=== PATIENT | female | born 1990 | race Caucasian/White ===

== ENCOUNTER 2024-02-05 10:00 | Outpatient (RCR) | payer BC, SELFPAY | END 2024-04-10 10:48 | disposition home or self-care (01) | PROVIDERS: PCP Family Medicine; Visit Provider Family Medicine | DX: M25.571 Pain in right ankle and joints of right foot (principal); M25.572 Pain in left ankle and joints of left foot; Z51.89 Encounter for other specified aftercare | CPT/HCPCS: 97110; 97161 ==

== ENCOUNTER 2024-06-13 13:23 | Outpatient (CLI) | payer BC, SELFPAY | END 2024-06-13 13:24 | disposition home or self-care (01) | LOC: NFLDREF 13:24 | PROVIDERS: PCP Family Medicine; Visit Provider Obstetrics & Gynecology | DX: N83.201 Unspecified ovarian cyst, right side (principal) | CPT/HCPCS: 86304 ==

== ENCOUNTER 2024-07-11 07:39 | Day surgery (SDC) | payer BC, SELFPAY ==
[2024-07-11] VITALS (12 sets, daily range): BP systolic 100–126; BP diastolic 55–96; PULSE 64–87; RESP 11–16; TEMP 36.3–36.9; O2SAT 93–98; BMI 37.3
[2024-07-11 08:30] LABS: Hemoglobin* 12.7 gm/dL (12.0-16.0)
[2024-07-11] MEDS: LACTATED RINGERS 1000 ML 1,000 ML 100 ML IV (08:30)
[2024-07-11] MEDS: SODIUM CHLORIDE 0.9 % (FLUSH) 10 ML SYRINGE IVF (08:30)
--- NOTE | 2024-07-11 08:31 | W.PM.H&PU ---
History & Physical Update History & Physical Update H&P Reviewed and patient assessed: No changes noted
--- NOTE | 2024-07-11 08:32 | PM.PROC ---
Procedure Note Time Seen by Provider: 11:31 Date Seen: 07/11/24 Date of procedure: 07/11/24 Will [facility] bill your pro fee for this procedure?: Yes Procedure: Referring physician: Theresa Muñoz MD Preoperative diagnosis: 34 yo with menorrhagia and right adnexal cyst. Postoperative diagnosis: Same with suspected endometrial polyps, paratubal cyst, stage I endometriosis Procedure: Hysteroscopy, dilation and curettage, endometrial ablation. Laparoscopic right paratubal cystectomy, fulguration of endometriosis. Anesthesia: General endotracheal and paracervical block. Surgeon: Meenu Carreon MD Assist: Kamryn Xie MD Estimated blood loss: 10 mL IV Fluid: 600 mL Urine output: 600 mL Specimen: Endometrial curettings, Ovarian cyst. sent to path. Findings: On exam under anesthesia: The cervix and vagina appear normal. The uterus was retroflexed position, approximately 8 week size, mobile and without masses or nodularity palpable. Adnexa were without mass or fullness palpable bilaterally. On hysteroscopy: Multiple polypoid masses otherwise endometrium normal. No other abnormalities noted. The uterus sounded to 10 cm. Cervical length 4.5 cm. Cavity length: 5.5. On Laparoscopy: Paratubal cyst measuring approximately 5-6 cm in diameter, stage I endometriosis with blebs in the posterior cul-de-sac along the uterosacral ligaments primarily on the right a few powder burn all like scars in the posterior cul-de-sac on the right that were not fulgurated due to proximity to the ureter. Normal uterus bilateral ovaries and left fallopian tube. Normal appendix, liver and gallbladder. Procedure: Mallory was taken to the operating room where general endotracheal anesthesia was found to be adequate. She was placed in a dorsal lithotomy position and an exam under anesthesia was performed with the findings stated above. She was then prepped and draped in a normal sterile manner. A Shepherd catheter was placed. An a bivalve is sterile speculum was placed in the vaginal canal. A paracervical block was placed using 0.5% Marcaine: 5 mL were injected at the 4 and 8 o'clock positions on the cervix. A long Allis clamp was placed on the anterior lip of the cervix. The cervix was then dilated to Hegar 6. Uterus sounded to 10 cm. The cervix measured 4.5 cm. There for the cavity length was 5.5 cm. The Truclear hysteroscope was advanced into the uterus. A diagnostic hysteroscopy performed with normal saline as the insufflation medium. Findings are stated above. The Truclear incisor was then advanced into the camera. And the curettage performed with this incisor. The curettage took approximately 3 min. Total insufflation medium used 2185 mL, deficit 280 mL The cavity appeared normal once the curettage was performed completed. The hysteroscope was removed. The cervix was then dilated to Hegar 8. The Johanne device was advanced into the uterus. The cavity check was completed and the ablation took place over 2 min. The Johanne was removed, the hysteroscope readvanced to document ablation of the entire cavity. The hysteroscope was then removed. The Allis clamp removed from the anterior lip of the cervix. Nothing was needed to obtain hemostasis. A [employer] uterine manipulator was placed. Attention was turned to performing the laparoscopy. On incisions were injected with 0.5% Marcaine prior to incising the skin. A 0.5 cm, vertical infraumbilical incision was made. A 5 mm trocar was placed under direct visualization with the laparoscoped. The abdomen was then insufflated with approximately 3 L of CO2 gas to a pressure of 15 mmHg. Two bilateral lower quadrant trocars were placed under direct visualization. Both approximately 3 finger breaths medial to the ischial crests of the hips. The 1 on the right was 5 mm the 1 on the left was 11 mm. Fluid from the pelvis was sent to cytology. This fluid was within the pelvis and consider pelvic washings from the hysteroscopy. A diagnostic laparoscopy was performed with findings stated above. The paratubal cyst with the distal portion of the right fallopian tube was removed from the broad ligament using the LigaSure dissection forceps. The cyst and proximal portion of the tube were placed in an Endo-Catch bag and removed through the left lower quadrant incision. The trocar in the left lower quadrant was removed in order to remove the Endo-Catch bag with cyst. The trocar was then replaced. Excellent hemostasis of the pedicle was identified. The blebs of the endometriosis in the posterior cul-de-sac were then cauterized using the [employer] cautery pencil with spatula. Excellent hemostasis noted. The fascia of the left lower quadrant incision was reapproximated using the Tavo-Evert fascial closure device. The remaining trocars were then removed under direct visualization. The CO2 gas was allowed to escape the infraumbilical port prior to its removal. All the incisions were reapproximated using 4-0 Monocryl in a running subcuticular manner. Exofin adhesive gel was then applied. The Shepherd catheter and uterine manipulator were removed The patient tolerated this procedure well. Sponge, lap and instrument counts were correct x2 at the end of the procedure and the patient was taken to the recovery area in stable condition. The patient received 30 mg IV Toradol at the end of the procedure.
[2024-07-11 09:08] LABS: HCG Qualitative Serum* Negative (Negative)
[2024-07-11] MEDS: BUPIVACAINE 0.5% 30 ML INJECTION (09:49)
--- NOTE | 2024-07-11 10:46 | SUR.OPER ---
fluid deficit 225 ml
--- NOTE | 2024-07-11 11:21 | W.ANESCHARGE ---
Anesthesia Charges Start Date/Time Anesthesia Start Date: 07/11/24 Anesthesia Start Time: 09:22 Stop Date/Time Anesthesia Stop Date: 07/11/24 Anesthesia Stop Time: 11:20
--- NOTE | 2024-07-11 11:34 | W.ANESCHARGE ---
Anesthesia Charges Start Date/Time Anesthesia Start Date: 07/11/24 Anesthesia Start Time: 09:22 Stop Date/Time Anesthesia Stop Date: 07/11/24 Anesthesia Stop Time: 11:20
--- NOTE | 2024-07-11 11:53 | SUR.PHASEI ---
patient met discharge criteria per anesthesia
== END 2024-07-11 12:54 | disposition home or self-care (01) ==
PROVIDERS: PCP Family Medicine; Visit Provider Obstetrics & Gynecology
PROC: 0UF98ZZ Fragmentation in Uterus, Via Natural or Artificial Opening Endoscopic (ICD-10-PCS; CPT 58563; principal; 2024-07-11 09:00)
PROC: (CPT 58662; 2024-07-11 09:00)
DX: N92.0 Excessive and frequent menstruation with regular cycle (principal); N80.329 Endometriosis of the posterior cul-de-sac, unspecified depth; N80.3C9 Endometriosis of the uterosacral ligament(s), unspecified side, unspecified depth; N83.8 Other noninflammatory disorders of ovary, fallopian tube and broad ligament; D28.2 Benign neoplasm of uterine tubes and ligaments
CPT/HCPCS: 58563; 58662; 00840; 36415; 84703; 85018; 86850; 86900; 86901; 88112; 88305; 88307; C1782; J0330; J0665; J1100; J1630; J1885; J2250; J2405; J2704; J3010; J3490; J7120